=== PATIENT | female | born 1960 | race Caucasian/White ===

== ENCOUNTER 2020-07-28 21:44 | Emergency (ER) | payer SELFPAY ==
[~2020-07-28] VITALS: Ht 170.2 cm; Wt 75.0 kg
[2020-07-28] MEDS ORDERED: HYDROcodone/APAP 5/325 TABLET PO STA (22:41)
[2020-07-28] MEDS ORDERED: PLEASE ENTER ALLERGIES MC SCH (23:00)
[2020-07-28] MEDS ORDERED: HYDROcodone/APAP 5/325 TABLET ONE (23:14)
[2020-07-29 00:30] VITALS: BP 134/79
--- NOTE | 2020-07-29 00:31 | NUR ---
TASK RN: Patient given discharge instructions and they have confirmed that they understand the instructions. Patient ambulatory with steady gait. NAD, VSS, DENIES ADDITIONAL NEEDS, QUESTIONS ANSWERED APPROPRIATELY. NO PT BELONGINGS LEFT IN ROOM AT TX.
== END 2020-07-29 00:35 | disposition home or self-care (01) ==
LOC: ED 22:28
DX: S63.522A Sprain of radiocarpal joint of left wrist, initial encounter (principal); X58.XXXA Exposure to other specified factors, initial encounter; Y93.89 Activity, other specified; Y92.89 Other specified places as the place of occurrence of the external cause; Y99.0 Civilian activity done for income or pay
CPT/HCPCS: 29125; 99284